=== PATIENT | female | born 1945 | race Caucasian/White ===

== ENCOUNTER → 2017-02-16 | Outpatient (CLI) | payer MEDICARE, OTHER ==
--- NOTE | 2017-02-16 09:18 | RADRPT ---
PROCEDURE: Right knee x-ray CLINICAL INDICATION: PAIN TECHNIQUE: AP, lateral, and sunrise views of the knee were obtained. COMPARISON: None FINDINGS: No acute fracture or dislocation is seen. There is normal mineralization. There is a total right knee prosthesis in near anatomic alignment without evidence of hardware loose kristofer. There is no joint effusion. There is no significant soft tissue swelling. IMPRESSION: Total right knee prosthesis in near anatomic alignment without evidence of hardware loosening. RPTAT: EE Physician Lorne Date Time Electronically viewed and signed by Michael Day Physician on 02/16/2017 09:17 /
== END | disposition home or self-care (01) ==
LOC: HKI 08:46
PROVIDERS: ATTEND Orthopaedic Surgery
DX: M51.36 Other intervertebral disc degeneration, lumbar region (principal); M54.16 Radiculopathy, lumbar region; M48.06 Spinal stenosis, lumbar region; M54.5 Low back pain; Z96.653 Presence of artificial knee joint, bilateral; Z91.81 History of falling
CPT/HCPCS: 73562; G0463